=== PATIENT | female | born 1995 | race Hispanic/Latino ===

== ENCOUNTER 2017-08-17 22:20 | Emergency (ER) | payer OTHER, MEDICAID ==
[~2017-08-17] VITALS: Ht 167.6 cm; Wt 80.7 kg
[2017-08-17 22:20] VITALS: BP 127/84
[2017-08-17] MEDS ORDERED: diphenhydrAMINE 50 MG CAP PO ONE (23:00)
[2017-08-17] MEDS ORDERED: HYDROCORTISONE 1% CREAM 30 GM TOP ONE (23:00)
== END 2017-08-17 23:09 | disposition home or self-care (01) ==
LOC: M ED 22:20
DX: S00.262A Insect bite (nonvenomous) of left eyelid and periocular area, initial encounter (principal); W57.XXXA Bitten or stung by nonvenomous insect and other nonvenomous arthropods, initial encounter; Y92.099 Unspecified place in other non-institutional residence as the place of occurrence of the external cause; Y93.9 Activity, unspecified; Y99.9 Unspecified external cause status

== ENCOUNTER 2017-08-18 14:27 | Emergency (ER) | payer OTHER, MEDICAID ==
[~2017-08-18] VITALS: Ht 167.6 cm; Wt 80.7 kg
[2017-08-18 14:27] VITALS: BP 124/74
[2017-08-18 16:44] LABS: MEAN CORPUSCULAR HEMOGLOBIN 30.1 pg (27.0-33.0); MEAN CORPUSCULAR HGB CONC 32.6 g/dl (32.0-36.5); MEAN CORPUSCULAR VOLUME 92.6 fl (80.0-96.0); PLATELET COUNT, AUTOMATED 271 10^3/uL (150-450); RED CELL DISTRIBUTION WIDTH 13.3 % (11.5-14.5); WHITE BLOOD COUNT 6.7 10^3/uL (4.0-10.0)
== END 2017-08-18 16:45 | disposition left against medical advice (07) ==
LOC: M ED 14:27
DX: N89.8 Other specified noninflammatory disorders of vagina (principal); Z53.21 Procedure and treatment not carried out due to patient leaving prior to being seen by health care provider